=== PATIENT | male | born 1975 | race Caucasian/White ===

== ENCOUNTER 2017-10-21 14:16 | Emergency (ER) | payer BC ==
[~2017-10-21] VITALS: Ht 182.9 cm; Wt 118.9 kg
[2017-10-21 14:26] VITALS: TEMP 36.3; Ht 182.9 cm; Wt 118.9 kg
[2017-10-21] MEDS ORDERED: LOSA50TA54 PO (14:59)
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
--- NOTE | 2017-10-21 15:10 | DIAGNOSTIC IMAGING REPORT ---
R SHOULDER MIN 2 VIEWS ROUTINE CLINICAL HISTORY: post reduction shoulder dislocation COMPARISON: None. DISCUSSION: Anatomic alignment status post closed reduction. Mild degenerative change acromioclavicular joint. No abnormal soft tissue calcifications. There is no evidence for soft tissue swelling. IMPRESSION: Anatomic alignment status post closed reduction The above report was generated using voice recognition software. It may contain grammatical, syntax or spelling errors. Electronically signed by: Karl Zimmer M.D. 10/21/2017 3:08 PM Dictated Date/Time: 10/21/2017 3:08 PM
[2017-10-21 15:38] VITALS: BP 178/116; PULSE 88; O2SAT 97
== END 2017-10-21 15:40 | disposition home or self-care (01) ==
LOC: C.EDB 14:18
DX: S43.014A Anterior dislocation of right humerus, initial encounter (principal); W01.0XXA Fall on same level from slipping, tripping and stumbling without subsequent striking against object, initial encounter

== ENCOUNTER 2017-11-18 12:11 | Emergency (ER) | payer BC ==
[~2017-11-18] VITALS: Ht 182.9 cm; Wt 118.8 kg
[~2017-11-18 12:11] MED LIST: LOSA50TA54 PO
[2017-11-18 12:12] VITALS: BP 150/95; PULSE 88; TEMP 36.4; O2SAT 100; Ht 182.9 cm; Wt 118.8 kg
--- NOTE | 2017-11-18 12:34 | DIAGNOSTIC IMAGING REPORT ---
R SHOULDER MIN 2 VIEWS ROUTINE CLINICAL HISTORY: 42 years-old Male presenting with shoulder dislocation. TECHNIQUE: Frontal and transcatheter Y views of the right shoulder were obtained. COMPARISON: 10/21/2017. FINDINGS: Glenohumeral and acromioclavicular joints congruent. No evidence of subluxation of the humeral head. No degenerative change. No evidence of acute fracture. Visualized portion of the right hemithorax normal. No radiographic soft tissue abnormality. IMPRESSION: No acute osseous injury. No subluxation. Electronically signed by: Kota Marcos M.D. 11/18/2017 12:33 PM Dictated Date/Time: 11/18/2017 12:32 PM
[2017-11-18] MEDS ORDERED: LOSA100T65 PO (12:44)
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
== END 2017-11-18 12:40 | disposition home or self-care (01) ==
LOC: C.EDB 12:11 → C.EDD 12:40
DX: S43.004A Unspecified dislocation of right shoulder joint, initial encounter (principal); Z79.899 Other long term (current) drug therapy; X58.XXXA Exposure to other specified factors, initial encounter